=== PATIENT | female | born 1960 | race Caucasian/White ===

== ENCOUNTER 2023-03-17 23:34 | Emergency (ER) | payer OTHER ==
[~2023-03-17] VITALS: Ht 165.1 cm; Wt 71.0 kg
[2023-03-17 23:38] VITALS: O2SAT 97
[2023-03-18 00:34] LABS: BASOPHILS % 0.5 % (0.0-2.0); EOSINOPHILS % 2.2 % (0.0-5.0); HEMATOCRIT. 41.2 % (36.0-48.0); HEMOGLOBIN. 14.1 g/dL (12.0-16.0); LYMPHOCYTES % 19.9 % (20.0-50.0); MEAN CORPUSCULAR HEMOGLOBIN 32.8 pg (28.0-32.0); MEAN CORPUSCULAR VOLUME 95.7 fL (81.0-99.0); MEAN PLATELET VOLUME 8.7 fl (7.4-10.4); MONOCYTES % 5.8 % (2.0-8.0); NEUTROPHILS % 71.6 % (40.0-76.0); PLATELET 186 x1000/uL (130-400); RED CELL DISTRIBUTION WIDTH 13.3 % (11.6-14.6)
[2023-03-18 00:44] LABS: CHLORIDE 101 mEq/L (98-107)
[2023-03-18] MEDS ORDERED: SODIUM CHLORIDE 0.9% 1,000 ML IV ONE (01:00)
[2023-03-18] MEDS ORDERED: DIPHENOXYLATE/ATROPINE 2.5/0.025MG TABLET PO ONE (01:45)
[2023-03-18] MEDS ORDERED: ACETAMINOPHEN 650MG/20.3ML UDC PO ONE (01:45)
[2023-03-18] MEDS ORDERED: DIPH1TAB24 MT (05:32)
[2023-03-18] MEDS ORDERED: TOPUD MT (05:32)
[2023-03-18 07:06] VITALS: BP 130/67; PULSE 82; RESP 18; TEMP 97.8
== END 2023-03-18 07:14 | disposition home or self-care (01) ==
LOC: ER 23:34
DX: R55 Syncope and collapse (principal); R53.1 Weakness; R42 Dizziness and giddiness; E11.9 Type 2 diabetes mellitus without complications
CPT/HCPCS: 99285; 71045; 36415; 93005; 80053; 83880; 85025; J7030